=== PATIENT | male | born 1960 | race Caucasian/White ===

== ENCOUNTER 2017-02-06 05:02 | Emergency (ER) | payer OTHER ==
[2017-02-06 05:16] VITALS: BP 173/84; PULSE 94; RESP 18; TEMP 99
--- NOTE | 2017-02-06 05:46 | ED ---
Skin/Abscess/FB HPI - General Chief complaint: Skin/Abscess/Foreign Body Stated complaint: rash/abcess left side of face Time Seen by Provider: 02/06/17 05:13 Source: patient Mode of arrival: ambulatory Limitations: no limitations - Related Data Home Medications Medication Instructions Recorded Confirmed Hydrocodone/Acetaminophen [Vicodin 1 tab PO TID PRN 02/06/17 02/06/17 Hp 10-300 mg Tablet] Previous Rx's Medication Instructions Recorded Hydrocortisone [Cortisone 10%] 1 applic TOPICAL TID #30 gm 02/06/17 Allergies Allergy/AdvReac Type Severity Reaction Status Date / Time No Known Allergies Allergy Verified 02/06/17 05:10 Review of Systems ROS Statement: Those systems with pertinent positive or pertinent negative responses have been documented in the HPI. ROS Other: All systems not noted in ROS Statement are negative. Past Medical History Past Medical History: No Reported History History of Any Multi-Drug Resistant Organisms: None Reported Additional Past Surgical History / Comment(s): chest tube Past Psychological History: No Psychological Hx Reported Smoking Status: Current every day smoker Past Alcohol Use History: None Reported Past Drug Use History: None Reported General Exam Limitations: no limitations Course Vital Signs 02/06/17 05:06 Temperature 99 F Pulse Rate 94 Respiratory 18 Rate Blood Pressure 173/84 O2 Sat by Pulse 98 Oximetry Disposition Clinical Impression: Multiple excoriations Disposition: HOME SELF-CARE Condition: Fair Instructions: Itchy Skin (ED) Prescriptions: Hydrocortisone [Cortisone 10%] 1 applic TOPICAL TID #30 gm Referrals: None,Stated [Primary Care Provider] - 1-2 days Oswaldo Connell MD [STAFF PHYSICIAN] - 1-2 days
== END 2017-02-06 05:55 | disposition home or self-care (01) ==
LOC: EC 05:02
DX: S00.81XA Abrasion of other part of head, initial encounter (principal); F17.200 Nicotine dependence, unspecified, uncomplicated; X58.XXXA Exposure to other specified factors, initial encounter
CPT/HCPCS: 99282

== ENCOUNTER 2017-05-23 22:54 | Emergency (ER) | payer OTHER ==
[2017-05-23 22:59] VITALS: BP 119/65; PULSE 120; RESP 20; TEMP 101
[2017-05-23] MEDS ORDERED: KETOROLAC 30 MG/ML 1 ML VIAL IVP STA (23:20)
[2017-05-23] MEDS ORDERED: RX INFO: IV CONTRAST WAS GIVEN 1 EACH MISC MISCELLANE PRN (23:20)
[2017-05-23] MEDS ORDERED: ACETAMINOPHEN TAB 500 MG TAB PO STA (23:20)
[2017-05-23] MEDS ORDERED: SODIUM CHLORIDE 0.9% 1,000 ML IV STA (23:20)
[2017-05-23] MEDS ORDERED: methylPREDNISolone SOD SUCCI 125 MG/2 ML VIAL IV STA (23:24)
--- NOTE | 2017-05-23 23:24 | ED ---
General Adult HPI - General Source: patient, RN notes reviewed Mode of arrival: ambulatory Limitations: no limitations <Radha Moreno - Last Filed: 05/24/17 02:52> <Lico Waters - Last Filed: 05/25/17 01:17> - General Chief complaint: ENT Stated complaint: difficulty swallowing Time Seen by Provider: 05/23/17 23:17 - History of Present Illness Initial comments: 56-year-old male presents to the emergency Department chief complaint of right- sided throat pain. Patient states that about 4 days. Patient states that fever chills any pain with opening the mouth. Patient states she was concerned because just seemed to be getting worse he thought that he should be seen. Patient states he has no significant health history. Patient denies any difficulty in breathing. Patient denies any recent fever, chills, shortness of breath, chest pain, back pain, abdominal pain, nausea vomiting, numbness or tingling, dysuria or hematuria, constipation or diarrhea, headaches or visual changes, or any other current symptoms. (Radha Moreno) - Related Data Home Medications Medication Instructions Recorded Confirmed No Known Home Medications [No 05/23/17 05/23/17 Known Home Medications] Allergies Allergy/AdvReac Type Severity Reaction Status Date / Time No Known Allergies Allergy Verified 05/23/17 22:59 Review of Systems ROS Other: All systems not noted in ROS Statement are negative. <Radha Moreno - Last Filed: 05/24/17 02:52> ROS Other: All systems not noted in ROS Statement are negative. <Lico Waters - Last Filed: 05/25/17 01:17> ROS Statement: Those systems with pertinent positive or pertinent negative responses have been documented in the HPI. Past Medical History Past Medical History: No Reported History History of Any Multi-Drug Resistant Organisms: None Reported Additional Past Surgical History / Comment(s): chest tube Past Psychological History: No Psychological Hx Reported Smoking Status: Current every day smoker Past Alcohol Use History: None Reported Past Drug Use History: None Reported <Radha Moreno - Last Filed: 05/24/17 02:52> General Exam Limitations: no limitations <Radha Moreno - Last Filed: 05/24/17 02:52> <Lico Waters - Last Filed: 05/25/17 01:17> - General Exam Comments Initial Comments: General: The patient is awake and alert, in no distress, and does not appear acutely ill. Eye: Pupils are equal, round and reactive to light, extra-ocular movements are intact; there is normal conjunctiva bilaterally. No signs of icterus. Ears, nose, mouth and throat: There are moist mucous membranes. Patient does appear to have enlarged right tonsillar area. Patient does have some trismus unable to completely open the mouth. Neck: The neck is supple, there is no tenderness. Tender cervical lymphadenopathy. Cardiovascular: There is a regular rate and rhythm. No murmur, rub or gallop is appreciated. Respiratory: Lungs are clear to auscultation, respirations are non-labored, breath sounds are equal. No wheezes, stridor, rales, or rhonchi. Gastrointestinal: Soft, non-distended, non-tender abdomen without masses or organomegaly noted. There is no rebound or guarding present. No CVA tenderness. Bowel sounds are unremarkable. Back: There is no tenderness to palpation in the midline. There is no obvious deformity. No rashes noted. Musculoskeletal: Normal ROM, no tenderness, There is no pedal edema. There is no calf tenderness or swelling. Sensation intact. Pulses equal bilaterally 2+. Neurological: CN II-XII intact, There are no obvious motor or sensory deficits. Coordination appears grossly intact. Speech is normal. Skin: Skin is warm and dry and no rashes or lesions are noted. Psychiatric: Cooperative, appropriate mood & affect, normal judgment. (Radha Moreno) Medical Decision Making - Lab Data Result diagrams: 05/23/17 23:43 05/23/17 23:43 - Radiology Data Radiology results: report reviewed, image reviewed <Radha Moreno - Last Filed: 05/24/17 02:52> - Lab Data Result diagrams: 05/23/17 23:43 05/23/17 23:43 <Lico Waters - Last Filed: 05/25/17 01:17> - Medical Decision Making 57-year-old male presents with for sore throat and he is experiencing some trismus. At this time we will get a CT as well as 2 blood work for the patient. At this time patient's blood work was reviewed. Patient's CT has been reviewed as well. When I went to the room to discuss his results and that he needed to be admitted to the hospital the patient had eloped from the department. We were unable to provide him any information regarding his scans. Unable to provide him medications we didn't want to admit the patient due to the extent of his illness but the patient has eloped. At this time we cannot provide the patient with any medical or further advice. The patient would've been admitted if he was still here. Discussed with nursing as well as they state they did not see the patient leave either. Suspicion is that we didn't want patient earlier that he would be admitted for this pending the CT report and he was very happy with our decision to keep him. (Radha Moreno) 57 yo male presenting with sore throat and difficulty swallowing. Did evaluate the patient after he was initially seen by the physician assistant field hockey coach. He did not have trismus. He was spitting up copious amounts of blood-tinged pus. Abscess likely a ruptured spontaneously. CT was obtained and was concerning for peritonsillar abscess with some retropharyngeal involvement. I have told the patient prior to CT read that he would need admission for IV antibiotics and ENT consult. He was unhappy with this. Stating it was his birthday today and he did not want to stay. After the CT was read by the radiologist I went informed patient of these findings and are continued plan to admit him. He was gone. Patient eloped. He was not given prescription for antibiotics. Attempt was made to contact the patient at home to inform of the results and to make sure that his IV had been removed. Diagnosis peritonsillar abscess with retropharyngeal extension. Disposition: Patient eloped. (Lico Waters) - Lab Data Lab Results 05/23/17 05/23/17 05/23/17 Range/Units 23:43 23:43 23:43 WBC 12.6 H (3.8-10.6) k/uL RBC 4.47 (4.30-5.90) m/uL Hgb 14.4 (13.0-17.5) gm/dL Hct 42.9 (39.0-53.0) % MCV 96.0 (80.0-100.0) fL MCH 32.2 (25.0-35.0) pg MCHC 33.6 (31.0-37.0) g/dL RDW 12.6 (11.5-15.5) % Plt Count 262 (150-450) k/uL Neutrophils % 90 % Lymphocytes % 4 % Monocytes % 3 % Eosinophils % 1 % Basophils % 1 % Neutrophils # 11.3 H (1.3-7.7) k/uL Lymphocytes # 0.6 L (1.0-4.8) k/uL Monocytes # 0.4 (0-1.0) k/uL Eosinophils # 0.1 (0-0.7) k/uL Basophils # 0.1 (0-0.2) k/uL Sodium 134 L (137-145) mmol/L Potassium 4.5 (3.5-5.1) mmol/L Chloride 94 L (98-107) mmol/L Carbon Dioxide 23 (22-30) mmol/L Anion Gap 17 mmol/L BUN 27 H (9-20) mg/dL Creatinine 0.80 (0.66-1.25) mg/dL Est GFR (MDRD) Af Amer >60 (>60 ml/min/1.73 sqM) Est GFR (MDRD) Non-Af >60 (>60 ml/min/1.73 sqM) Glucose 114 H (74-99) mg/dL Plasma Lactic Acid Darwin 1.9 (0.7-2.0) mmol/L Calcium 9.6 (8.4-10.2) mg/dL Total Bilirubin 0.5 (0.2-1.3) mg/dL AST 25 (17-59) U/L ALT 32 (21-72) U/L Alkaline Phosphatase 96 (38-126) U/L Total Protein 7.4 (6.3-8.2) g/dL Albumin 4.4 (3.5-5.0) g/dL Group A Strep Rapid (Negative) 05/23/17 Range/Units 23:43 WBC (3.8-10.6) k/uL RBC (4.30-5.90) m/uL Hgb (13.0-17.5) gm/dL Hct (39.0-53.0) % MCV (80.0-100.0) fL MCH (25.0-35.0) pg MCHC (31.0-37.0) g/dL RDW (11.5-15.5) % Plt Count (150-450) k/uL Neutrophils % % Lymphocytes % % Monocytes % % Eosinophils % % Basophils % % Neutrophils # (1.3-7.7) k/uL Lymphocytes # (1.0-4.8) k/uL Monocytes # (0-1.0) k/uL Eosinophils # (0-0.7) k/uL Basophils # (0-0.2) k/uL Sodium (137-145) mmol/L Potassium (3.5-5.1) mmol/L Chloride (98-107) mmol/L Carbon Dioxide (22-30) mmol/L Anion Gap mmol/L BUN (9-20) mg/dL Creatinine (0.66-1.25) mg/dL Est GFR (MDRD) Af Amer (>60 ml/min/1.73 sqM) Est GFR (MDRD) Non-Af (>60 ml/min/1.73 sqM) Glucose (74-99) mg/dL Plasma Lactic Acid Darwin (0.7-2.0) mmol/L Calcium (8.4-10.2) mg/dL Total Bilirubin (0.2-1.3) mg/dL AST (17-59) U/L ALT (21-72) U/L Alkaline Phosphatase (38-126) U/L Total Protein (6.3-8.2) g/dL Albumin (3.5-5.0) g/dL Group A Strep Rapid Negative (Negative) Disposition <Radha Moreno - Last Filed: 05/24/17 02:52> <Lico Waters - Last Filed: 05/25/17 01:17> Clinical Impression: Abscess, peritonsillar Disposition: Left Against Medical Advice Referrals: None,Stated [Primary Care Provider] - 1-2 days
[2017-05-24 00:04] LABS: Basophils # (A) 0.1 k/uL (0-0.2); Basophils % (A) 1 %; CH 32.7; CHCM 34.2; Eosinophils # (A) 0.1 k/uL (0-0.7); Eosinophils % (A) 1 %; HCT 42.9 % (39.0-53.0); HDW 2.28; HGB 14.4 gm/dL (13.0-17.5); Luc # (Auto) 0.18; Luc % (Auto) 1; Lymphocytes # (A) 0.6 k/uL (1.0-4.8); Lymphocytes % (A) 4 %; MCH 32.2 pg (25.0-35.0); MCHC 33.6 g/dL (31.0-37.0); Mean Platelet Volume 7.7; Monocytes # (A) 0.4 k/uL (0-1.0); Monocytes % (A) 3 %; Neutrophils # (A) 11.3 k/uL (1.3-7.7); Neutrophils % (A) 90 %; RBC 4.47 m/uL (4.30-5.90); RDW 12.6 % (11.5-15.5); WBC 12.6 k/uL (3.8-10.6); WBC (Perox) 12.01
[2017-05-24 00:12] LABS: ALT 32 U/L (21-72); AST 25 U/L (17-59); Alkaline Phosphatase 96 U/L (38-126); Anion Gap 17 mmol/L; Blood Urea Nitrogen 27 mg/dL (9-20); Calcium 9.6 mg/dL (8.4-10.2); Carbon Dioxide 23 mmol/L (22-30); Chloride 94 mmol/L (98-107); Glucose 114 mg/dL (74-99); Non-African American GFR(MDRD) >60 (>60 ml/min/1.73 sqM); Potassium 4.5 mmol/L (3.5-5.1); Sodium 134 mmol/L (137-145); Total Bilirubin 0.5 mg/dL (0.2-1.3); Total Protein 7.4 g/dL (6.3-8.2)
[2017-05-24] MEDS ORDERED: AMPICILLIN-SULBACTAM 3 GM in SODIUM CHLORIDE 0.9% 100 ML IVPB STA (00:27)
--- NOTE | 2017-05-24 02:33 | CT ---
EXAM: CT Neck With Intravenous Contrast CLINICAL HISTORY: Right-sided throat pain. Sore throat. TECHNIQUE: Axial computed tomography images of the neck with intravenous contrast. CTDI is 11.00 mGy and DLP is 359.20 mGy-cm. This CT exam was performed using one or more of the following dose reduction techniques: automated exposure control, adjustment of the mA and/or kV according to patient size, and/or use of iterative reconstruction technique. Coronal and sagittal reformatted images were created and reviewed. CONTRAST: 100 mL of Omnipaque 300 administered intravenously. COMPARISON: No relevant prior studies available. FINDINGS: Pharynx: Right pharyngeal mucosal edema. Right palatine tonsillar edema with development of a 2 cm x 1.8 cm x 3.1 cm peripherally enhancing fluid collection, suspicious for an abscess (series 3 images 51-58). A separate 2 cm hypoattenuating structure superiorly to the fluid collection is less organized and may represent phlegmon (series 3 images 59-63). There is mild narrowing of the oropharyngeal airway. Hypopharynx: Surrounding inflammatory changes extend to the right parapharyngeal space, retropharyngeal space and right hypopharynx, suggesting an associated cellulitis. Larynx: Minimal thickening of the epiglottis. The laryngeal airway is clear. Trachea: Trace tracheal secretions. Retropharyngeal space: Small retropharyngeal effusion. Submandibular/parotid glands: Unremarkable. Glands are normal in size. Thyroid: Unremarkable. No enlarged or calcified nodules. Bones/joints: No acute fracture. Degenerative disc changes most pronounced at C5-6. No findings to suggest spinal canal stenosis to the level of C7. Vasculature: No acute findings. Lymph nodes: More than expected but non-pathologically enlarged cervical lymph nodes. Sinuses: Trace right maxillary sinus mucosal thickening/opacities. No air-fluid levels. Dental: Dental caries and periapical lucencies. Lung apices: Unremarkable as visualized. IMPRESSION: 1. Right palatine tonsillar edema with development of a 2 cm x 1.8 cm x 3.1 cm peripherally enhancing fluid collection, suspicious for an abscess. 2. A separate 2 cm hypoattenuating structure superiorly to the fluid collection is less organized and may represent phlegmon. However, neoplasm is not excluded. Recommend correlation with clinical exam findings and appropriate follow-up. 3. Surrounding inflammatory changes extend to the right parapharyngeal space, retropharyngeal space and right hypopharynx, suggesting an associated cellulitis. 4. Dental caries and periapical lucencies.
[2017-05-24] MEDS ORDERED: AMPICILLIN-SULBACTAM 3 GM in SODIUM CHLORIDE 0.9% 100 ML IVPB SCH (06:00)
== END 2017-05-24 04:46 | disposition left against medical advice (07) ==
LOC: EC 22:54
DX: J36 Peritonsillar abscess (principal); F17.200 Nicotine dependence, unspecified, uncomplicated
CPT/HCPCS: 99284; 96365; 96366; 96375 ×2; 96361; 36415; 80053; 83605; 85025; 87040; 87081; 87430; 87077; 87186; 70491; J2930; J1885; Q9967; J0295

== ENCOUNTER 2017-05-26 09:01 | Emergency (ER) | payer OTHER ==
[2017-05-26 09:08] VITALS: RESP 18
[2017-05-26] MEDS ORDERED: BENZOCAINE SPRAY 1 SPRAY CAN ONE (09:34)
[2017-05-26] MEDS ORDERED: SODIUM CHLORIDE 0.9% 1,000 ML IV STA ×2 (10:16)
[2017-05-26] MEDS ORDERED: AMPICILLIN-SULBACTAM 3 GM in SODIUM CHLORIDE 0.9% 100 ML IVPB STA (10:17)
[2017-05-26] MEDS ORDERED: methylPREDNISolone SOD SUCCI 125 MG/2 ML VIAL IV STA (10:19)
[2017-05-26] MEDS ORDERED: HYDROmorphone 1 MG/ML 1 ML SYRINGE IVP STA (10:20)
[2017-05-26] MEDS ORDERED: RX INFO: IV CONTRAST WAS GIVEN 1 EACH MISC MISCELLANE PRN (10:20)
[2017-05-26 10:56] LABS: Basophils # (A) 0.1 k/uL (0-0.2); Basophils % (A) 1 %; CH 32.8; CHCM 34.3; Eosinophils # (A) 0.1 k/uL (0-0.7); Eosinophils % (A) 1 %; HCT 40.7 % (39.0-53.0); HDW 2.47; HGB 13.4 gm/dL (13.0-17.5); Luc # (Auto) 0.32; Luc % (Auto) 3; Lymphocytes # (A) 1.2 k/uL (1.0-4.8); Lymphocytes % (A) 13 %; MCH 31.7 pg (25.0-35.0); MCV 96.1 fL (80.0-100.0); Mean Platelet Volume 7.8; Monocytes # (A) 0.6 k/uL (0-1.0); Monocytes % (A) 7 %; Neutrophils # (A) 7.2 k/uL (1.3-7.7); Neutrophils % (A) 76 %; RBC 4.23 m/uL (4.30-5.90); WBC 9.5 k/uL (3.8-10.6); WBC (Perox) 9.24
[2017-05-26 11:01] LABS: INR 1.1 (<1.2); Partial Thromboplastin Time 25.9 sec (22.0-30.0); Prothrombin Time 11.2 sec (9.0-12.0)
[2017-05-26 11:04] LABS: ALT 55 U/L (21-72); AST 31 U/L (17-59); Alkaline Phosphatase 100 U/L (38-126); Anion Gap 11 mmol/L; Blood Urea Nitrogen 13 mg/dL (9-20); Carbon Dioxide 27 mmol/L (22-30); Chloride 102 mmol/L (98-107); Glucose 91 mg/dL (74-99); Non-African American GFR(MDRD) >60 (>60 ml/min/1.73 sqM); Potassium 4.2 mmol/L (3.5-5.1); Sodium 140 mmol/L (137-145); Total Bilirubin 0.4 mg/dL (0.2-1.3); Total Protein 6.2 g/dL (6.3-8.2)
--- NOTE | 2017-05-26 11:39 | CT ---
EXAMINATION TYPE: CT soft tissue neck w con DATE OF EXAM: 05/26/2017 COMPARISON: 05/24/2017 HISTORY: Throat abscess CT DLP: 296.1 mGycm CONTRAST: Patient injected with 100 mL of Omnipaque 300. TECHNIQUE: Axial images at 3 mm thick sections. Reconstructed images in the coronal plane and sagitt al plane are reviewed. FINDINGS: Limited CT sections are obtained the lung apices. The lung apices appear clear. CT neck: There is a lobular low-density collection within the right tonsillar pillar with enhancing diane. Thi s measures 1.7 cm AP by 2.4 cm transverse by 3.8 cm in craniocaudal dimension. Findings are compatibl e with a tonsillar abscess. This has increased in size from the comparison study. This extends to andrés rly the submandibular region on the right. There is displacement of the pharynx towards the left. Mucosal thickening is within the right maxillary sinus. Remaining paranasal sinuses and mastoid air c ells are clear. Parotid glands appear normal and symmetrical. Submandibular glands are normal. Parapharyngeal space s are normal. No suspicious adenopathy is evident. Portions of the thyroid visualized appear within normal limits. Tiny cyst may be within the anterior left mid thyroid lobe. Vocal cord level appear symmetrical. Degenerative changes are within the cervical spine. IMPRESSIONS: 1. Enlarging abscess right tonsillar pillar extending to the submandibular gland. Findings are worsen ing from 05/24/2017.
--- NOTE | 2017-05-26 11:55 | XR ---
EXAMINATION TYPE: XR chest 2V DATE OF EXAM: 05/26/2017 COMPARISON: NONE HISTORY: Dyspnea, dysphagia and weakness TECHNIQUE: Frontal and lateral views of the chest are obtained. FINDINGS: There is no focal air space opacity, pleural effusion, or pneumothorax seen. The cardiac silhouette size is small. Prominent lung volume may be indicative of underlying COPD. The osseous str uctures are intact. IMPRESSION: No acute cardiopulmonary process.
[2017-05-26] MEDS ORDERED: BENZOCAINE SPRAY 1 SPRAY CAN MUCOUS MEM PRN (12:28)
--- NOTE | 2017-05-26 12:58 | ED ---
ENT HPI - General Chief complaint: ENT Stated complaint: throat abcess Time Seen by Provider: 05/26/17 09:55 Source: patient Mode of arrival: ambulatory Limitations: no limitations - History of Present Illness Initial comments: This 57-year-old white male presents with some pain to his right throat. He apparently is had this for approximately one week. He states that his problems with swallowing due to the pain. He also has to spit out his own secretions now. He was seen here 2 days ago and had full workup including labs and a computed tomography scan of the neck and this did show evidence of a peritonsillar abscess. He refused further treatment in the emergency department and admission and signed out AGAINST MEDICAL ADVICE. Since she's been home, the symptoms have gotten much worse. He denies any actual fevers. He relates some degree of shortness of breath. He denies any other complaints or modifying factors. - Related Data Home Medications Medication Instructions Recorded Confirmed No Known Home Medications [No 05/23/17 05/26/17 Known Home Medications] Allergies Allergy/AdvReac Type Severity Reaction Status Date / Time No Known Allergies Allergy Verified 05/26/17 10:02 Review of Systems ROS Statement: Those systems with pertinent positive or pertinent negative responses have been documented in the HPI. ROS Other: All systems not noted in ROS Statement are negative. Past Medical History Past Medical History: No Reported History History of Any Multi-Drug Resistant Organisms: None Reported Additional Past Surgical History / Comment(s): chest tube Past Psychological History: No Psychological Hx Reported Smoking Status: Current every day smoker Past Alcohol Use History: None Reported Past Drug Use History: None Reported General Exam - General Exam Comments Initial Comments: GENERAL: The patient is well nourished and well hydrated. VITAL SIGNS: Heart rate, blood pressure, respiratory rate reviewed as recorded in nurse's notes. EYES: Pupils are round and reactive. Extraocular movements are intact. No conjunctival / lid redness or swelling. ENT: The patient has swelling noted to the right peritonsillar region. There is significant inflammation of the uvula. There is some midline shift to the left of the uvula. NECK: Nontender. No swelling or evidence of injury. No subcutaneous emphysema. Trachea is midline. No thyroid mass. HEART: Regular rate and rhythm. Good peripheral pulses. LUNGS/CHEST: Breath sounds clear and equal bilaterally. No rales, rhonchi, or wheezes. No ecchymosis, subcutaneous emphysema, or tenderness. ABDOMEN: Abdomen soft without tenderness. No palpable masses or organomegaly. No peritoneal signs. No abdominal wall swelling or ecchymosis. EXTREMITIES: No extremity tenderness. Normal muscle tone and function. No thoracolumbar tenderness. NEUROLOGIC: Sensation is grossly intact. Cranial nerve exam reveals face is symmetrical, tongue is midline, speech is clear. SKIN: No abrasions or ecchymosis is noted. No induration or masses noted. PSYCHIATRIC: Alert and oriented. Appropriate behavior and judgment. Limitations: no limitations Course Vital Signs 05/26/17 05/26/17 05/26/17 09:05 09:49 10:47 Temperature 100.0 F H 98.6 F Pulse Rate 88 68 Respiratory 18 18 18 Rate Blood Pressure 135/72 114/79 O2 Sat by Pulse 97 99 Oximetry Medical Decision Making - Medical Decision Making The patient was seen and examined. All diagnostics were reviewed. The laboratory came back fairly unremarkable. The case is discussed with Dr. Rhodes and he would like a repeat computed tomography scan of the neck. This is completed and does still show the peritonsillar abscess but it does appear to be worse as compared to previous. He was recontacted and does present to the ER. He drains approximately 10 mL of purulent material from the peritonsillar abscess. The patient is doing better afterwards. The EKG shows a normal sinus rhythm at a rate of [address]-T wave changes noted. The OR intervals 126, QRS duration is 82, and the QTC intervals 397. The patient did receive IV fluids as well as milligram of Dilaudid, Solu-Medrol, and Unasyn intravenously. Dr. Rhodes feels as though the patient is stable for discharge and would like him on some tramadol and Cleocin. The patient lives in no identifiable distress and is much improved. - Lab Data Result diagrams: 05/26/17 10:35 05/26/17 10:35 Lab Results 05/26/17 05/26/17 05/26/17 Range/Units 10:35 10:35 10:35 WBC 9.5 (3.8-10.6) k/uL RBC 4.23 L (4.30-5.90) m/uL Hgb 13.4 (13.0-17.5) gm/dL Hct 40.7 (39.0-53.0) % MCV 96.1 (80.0-100.0) fL MCH 31.7 (25.0-35.0) pg MCHC 33.0 (31.0-37.0) g/dL RDW 13.0 (11.5-15.5) % Plt Count 315 (150-450) k/uL Neutrophils % 76 % Lymphocytes % 13 % Monocytes % 7 % Eosinophils % 1 % Basophils % 1 % Neutrophils # 7.2 (1.3-7.7) k/uL Lymphocytes # 1.2 (1.0-4.8) k/uL Monocytes # 0.6 (0-1.0) k/uL Eosinophils # 0.1 (0-0.7) k/uL Basophils # 0.1 (0-0.2) k/uL PT (9.0-12.0) sec INR (<1.2) APTT (22.0-30.0) sec Sodium 140 (137-145) mmol/L Potassium 4.2 (3.5-5.1) mmol/L Chloride 102 (98-107) mmol/L Carbon Dioxide 27 (22-30) mmol/L Anion Gap 11 mmol/L BUN 13 (9-20) mg/dL Creatinine 0.60 L (0.66-1.25) mg/dL Est GFR (MDRD) Af Amer >60 (>60 ml/min/1.73 sqM) Est GFR (MDRD) Non-Af >60 (>60 ml/min/1.73 sqM) Glucose 91 (74-99) mg/dL Calcium 9.0 (8.4-10.2) mg/dL Total Bilirubin 0.4 (0.2-1.3) mg/dL AST 31 (17-59) U/L ALT 55 (21-72) U/L Alkaline Phosphatase 100 (38-126) U/L Total Protein 6.2 L (6.3-8.2) g/dL Albumin 3.4 L (3.5-5.0) g/dL Heterophile Antibody Negative (Negative) 05/26/17 Range/Units 10:35 WBC (3.8-10.6) k/uL RBC (4.30-5.90) m/uL Hgb (13.0-17.5) gm/dL Hct (39.0-53.0) % MCV (80.0-100.0) fL MCH (25.0-35.0) pg MCHC (31.0-37.0) g/dL RDW (11.5-15.5) % Plt Count (150-450) k/uL Neutrophils % % Lymphocytes % % Monocytes % % Eosinophils % % Basophils % % Neutrophils # (1.3-7.7) k/uL Lymphocytes # (1.0-4.8) k/uL Monocytes # (0-1.0) k/uL Eosinophils # (0-0.7) k/uL Basophils # (0-0.2) k/uL PT 11.2 (9.0-12.0) sec INR 1.1 (<1.2) APTT 25.9 (22.0-30.0) sec Sodium (137-145) mmol/L Potassium (3.5-5.1) mmol/L Chloride (98-107) mmol/L Carbon Dioxide (22-30) mmol/L Anion Gap mmol/L BUN (9-20) mg/dL Creatinine (0.66-1.25) mg/dL Est GFR (MDRD) Af Amer (>60 ml/min/1.73 sqM) Est GFR (MDRD) Non-Af (>60 ml/min/1.73 sqM) Glucose (74-99) mg/dL Calcium (8.4-10.2) mg/dL Total Bilirubin (0.2-1.3) mg/dL AST (17-59) U/L ALT (21-72) U/L Alkaline Phosphatase (38-126) U/L Total Protein (6.3-8.2) g/dL Albumin (3.5-5.0) g/dL Heterophile Antibody (Negative) Disposition Clinical Impression: Abscess, peritonsillar Disposition: HOME SELF-CARE Condition: Good Additional Instructions: Please take the Cleocin and Ultram as prescribed. Please return if your symptoms do worsen. Please follow-up with Dr. Rhodes as needed. He will also may take Tylenol and/or Motrin if needed for any pain or fever. Referrals: None,Stated [Primary Care Provider] - 1-2 days Time of Disposition: 12:57
[2017-05-26 13:13] VITALS: BP 121/68; PULSE 66; TEMP 98.3
--- NOTE | 2017-05-27 07:48 | CONS ---
REASON FOR EMERGENCY ROOM VISIT: Right peritonsillar abscess. HISTORY OF PRESENT ILLNESS: This patient is a 57 -year-old male who was seen in the emergency room on 05/26/2017 complaining of severe pain in his throat on the right side, right referred otalgia, difficulty swallowing and difficulty handling his secretions, and swelling in the right side of his throat for the past seven to ten days. It is interesting to note that the patient had previously been seen in the emergency room on 05/23/2017 for the same problem. At that time, a CT scan of the neck had been performed and it was noted that the patient had a small peritonsillar abscess. It was recommended to the patient that he be admitted for IV treatment and possible drainage. However, while the medical personnel of the emergency room were out of the room, the patient apparently eloped AMA, and this was unknown to the medical personnel. They attempted to find him and attempted to call him at home but received no answer. They had apparently intended to possibly discharge him to home if he did not want to be admitted on oral antibiotics but of course he left without any medication. The patient had stated that he needed to be home because the next day was his birthday and he wanted to be home for that. It was emphasized to him the importance of staying at the hospital and the danger of leaving with such a serious condition. However, the patient simply left AMA. He returned 05/26/2017 with even all of his symptoms having increased. My office was contacted and I requested a CT scan. A repeat CT scan with contrast to be performed. The repeat CT scan showed that the abscess had actually increased in size. At that point, I advised the emergency room doctor that the patient should be given intravenous antibiotic, namely Unasyn and that I would be over to see him during the lunch hour. PAST MEDICAL HISTORY: Reveals no known allergies to medications. He is not currently on any medications because he never goes to a doctor and he does not have a primary care physician. He smokes approximately one to two packs of cigarettes a day and has been advised to quit for obvious health reasons. However, I do not think the patient has any intention of quitting smoking. In addition to this, he also drinks a significant amount of alcohol. He denies any history of asthma, diabetes mellitus or hypertension. Review of systems is essentially unremarkable. PHYSICAL EXAMINATION: This patient is a 57 -year-old male who is alert and cooperative and is obviously in severe pain with respect to his throat and also with respect to his lower back because he has severe osteoarthritis. HEENT: Normocephalic. Tympanic membranes are normal. Middle ear space is free of any fluid or infection. Pupils are equal, round and reactive to light and accommodation. Extraocular movements within normal limits. Intranasal exam reveals severe septal deviation, compensatory hypertrophy in the inferior turbinates. Examination of the oropharynx reveals severe swelling on the right tonsillar/peritonsillar area with tenderness to palpation with the tongue weight. The left tonsil is unremarkable. Palpation of the neck is negative for any lymphadenopathy. The patients oropharynx revealed extremely poor dentition with numerous carious teeth and numerous missing teeth. Cranial nerves 2 thru 12 and the remainder of the head and neck exam essentially unremarkable. Chest/cardiovascular: Both lung larson are clear to percussion and auscultation. Lung sounds appear to be somewhat distant at the bases suggesting possible early COPD. The patient is in regular sinus rhythm, S1 and S2 are present without evidence of any murmurs, S3 or S4. Peripheral pulses are bilaterally symmetrical. Abdomen: There is no evidence of any masses or tenderness. The abdomen is soft. The remainder of the physical examination is unremarkable. IMPRESSION: 1. Right peritonsillar abscess. 2. Deviated septum. 3. Hypertrophy of the inferior turbinates. PLAN: I plan to surgically drain the right peritonsillar abscess while the patient is in the emergency room today. I have discussed the risks, benefits and alternative therapies for the above- mentioned procedure and for both sedation/analgesia as well as necessary blood product administration, if indicated, as they pertain to this patient. The patient has indicated his or her understanding and acceptance of the risks and procedures discussed. GEM
--- NOTE | 2017-05-28 06:27 | OP ---
SURGEON: Garry Rhodes MD PREOPERATIVE DIAGNOSIS: Right peritonsillar abscess. POSTOPERATIVE DIAGNOSIS: Right peritonsillar abscess. ANESTHESIA: Local with Hurricaine oral spray. COMPLICATIONS: None. ESTIMATED BLOOD LOSS: Less than 2 mL. OPERATIVE PROCEDURE: The patient was placed in the sitting position on the OR bed. Next, using a metal tonsillar tongue depressor, the posterior pharynx was visualized and the right peritonsillar area was noted to have severe swelling in the usual manner. The patient was instructed what to expect and that is to say there would be significant pain in the process of doing this, but once the abscess was drained he would feel much better. Therefore initially I tried to drain the abscess using a 10 mL syringe and an 18 gauge needle. Severe punctures did not reveal any purulent material. This was mainly because the patient had somewhat difficulty keeping still on the table. I subsequently sprayed his posterior pharynx with Hurricaine spray and this gave the patient a slight amount of pain relief. Once again, I used the 10 mL syringe and a 18 gauge needle and inserted this half way between the rear molars and the uvula in the usual fashion and slowly withdrew the syringe and needle and in the process of the withdrawing it pulled back on the plunger of the syringe. Immediately thick purulent material was suctioned from the abscess cavity. A total of approximately 9.5 to 10 mL of thick purulent material was suctioned from the abscess cavity and this material was discarded. There was minor bleeding that involved maybe 1 or 2 mL from the puncture sites. The patient experienced almost immediate relief once the abscess pocket had been drained. While the needle was present in the abscess pocket, I maneuvered it in several positions in an effort to get as much of the pus out of the abscess pocket as possible. I felt I had completely drained the majority of the pus, at least 99 % out of the abscess pocket, which is reasonable. At this point, the procedure was terminated. There were no intraoperative complications. The patient tolerated the procedure quite well and he will be discharged to home on oral antibiotics, namely Cleocin.( ) mg p.o. t.i.d. x7 days. We will also give him tramadol tablets 50 mg p.o. q.4 hours p.r.n. for pain, #30. I will not need to see this patient on followup, but I have encouraged him to stop smoking and also to find a primary care physician. I have discussed the risks, benefits and alternative therapies for the above- mentioned procedure and for both sedation/analgesia as well as necessary blood product administration, if indicated, as they pertain to this patient. The patient has indicated his or her understanding and acceptance of the risks and procedures discussed. GEM
== END 2017-05-26 13:13 | disposition home or self-care (01) ==
LOC: EC 09:01
DX: J36 Peritonsillar abscess (principal); F17.200 Nicotine dependence, unspecified, uncomplicated
CPT/HCPCS: 99284; 96365; 96375 ×2; 96361 ×2; 36415; 80053; 85025; 85610; 85730; 86308; 71020; 70491; J2930; J1170; Q9967; J0295